=== PATIENT | female | born 1985 | race Caucasian/White ===

== ENCOUNTER 2023-08-20 07:44 | Outpatient (CLI) | payer MEDICAID ==
[2023-08-20] MEDS ORDERED: iohexol 350MG/ML 100ml bottle IV ONE (07:55)
== END 2023-08-20 23:59 | disposition home or self-care (01) ==
LOC: RAD 07:44
PROVIDERS: ATTEND Physician Assistant
DX: Q25.1 Coarctation of aorta (principal)
CPT/HCPCS: 71275; 74174; J3490; Q9967